=== PATIENT | male | born 1975 | race Caucasian/White ===

== ENCOUNTER → 2020-04-21 10:08 | Outpatient (BNVA) | payer OTHER, SELFPAY | PROVIDERS: Family Provider Family Medicine; Visit Provider Nurse Practitioner Family | DX: R05 Cough (principal) | CPT/HCPCS: 87635 ==

== ENCOUNTER 2020-08-18 15:41 | Outpatient (CLI) | payer OTHER, SELFPAY ==
--- NOTE | 2020-08-18 15:52 | XR_ITS ---
WS: [id number] Chest 2 views, 08/18/2020 Clinical Data: PNEUMONIA, DYSPNEA Comparison: PA and lateral chest, 06/27/2017. Findings: No nodules, masses or effusions are seen. The heart is normal. The pulmonary vascularity is not increased. No pneumonia or pneumothorax is seen. Stimulator leads are overlying the left side of the chest. There are clips in the right upper quadrant from a cholecystectomy. The left first rib is absent. XR/XR chest 2V* [id number] Impression: Negative chest.
== END 2020-08-18 15:42 | disposition home or self-care (01) ==
LOC: RADWPI 15:47
PROVIDERS: PCP Family Medicine; Visit Provider Family Medicine
DX: J18.9 Pneumonia, unspecified organism (principal); R06.02 Shortness of breath
CPT/HCPCS: 71046

== ENCOUNTER → 2022-03-27 13:56 | Outpatient (BNVA) | payer OTHER, SELFPAY | PROVIDERS: PCP Family Medicine; Visit Provider Chiropractor | DX: F03.90 Unspecified dementia, unspecified severity, without behavioral disturbance, psychotic disturbance, mood disturbance, and anxiety (principal); Z00.01 Encounter for general adult medical examination with abnormal findings; R53.82 Chronic fatigue, unspecified; E29.1 Testicular hypofunction; Z12.5 Encounter for screening for malignant neoplasm of prostate | CPT/HCPCS: 80053; 80061; 82533; 82607; 82627; 82670; 82728; 83001; 83002; 83036; 83525; 84153; 84402; 84403; 84439; 84443; 84481; 85025; 86140 ==

== ENCOUNTER → 2023-05-06 15:03 | Outpatient (BNVA) | payer OTHER, SELFPAY | PROVIDERS: PCP Family Medicine; Visit Provider Family Medicine | DX: E34.9 Endocrine disorder, unspecified (principal); I10 Essential (primary) hypertension; R79.89 Other specified abnormal findings of blood chemistry; E03.9 Hypothyroidism, unspecified | CPT/HCPCS: 82040; 82672; 84270; 84403; 84436; 84443; 84481 ==

== ENCOUNTER → 2024-03-26 09:19 | Outpatient (BNVA) | payer OTHER, SELFPAY | PROVIDERS: PCP Family Medicine; Visit Provider Family Medicine | DX: I10 Essential (primary) hypertension (principal); R79.89 Other specified abnormal findings of blood chemistry; E34.9 Endocrine disorder, unspecified; N28.9 Disorder of kidney and ureter, unspecified; G89.29 Other chronic pain; Z13.6 Encounter for screening for cardiovascular disorders; Z79.899 Other long term (current) drug therapy | CPT/HCPCS: 80053; 80061; 82040; 84270; 84403; 85025; 86705; 86706; 86803; 87340; 87806 ==

== ENCOUNTER → 2025-03-23 11:19 | Outpatient (BNVA) | payer OTHER, SELFPAY | PROVIDERS: PCP Family Medicine; Visit Provider Family Medicine | DX: Z00.00 Encounter for general adult medical examination without abnormal findings (principal); I10 Essential (primary) hypertension; N28.9 Disorder of kidney and ureter, unspecified | CPT/HCPCS: 80053; 80061; 86705; 86706; 86803; 87340; 87806 ==

== ENCOUNTER → 2025-07-08 12:32 | Outpatient (BNVA) | payer OTHER, SELFPAY | PROVIDERS: PCP Family Medicine; Visit Provider Family Medicine | DX: K62.5 Hemorrhage of anus and rectum (principal); K64.8 Other hemorrhoids; R10.11 Right upper quadrant pain; K46.9 Unspecified abdominal hernia without obstruction or gangrene | CPT/HCPCS: 80053; 83690; 85025 ==

== ENCOUNTER 2025-07-19 07:40 | Outpatient (CLI) | payer OTHER, SELFPAY ==
[2025-07-19] MEDS: iohexol 350 mg/mL 500 mL Btl (per mL) PO (08:39)
--- NOTE | 2025-07-19 08:45 | CT_ITS ---
WS: [id number] CT ABDOMEN AND PELVIS WITH AND WITHOUT CONTRAST HISTORY: K62.5 - Hemorrhage of anus and rectum TECHNIQUE: Unenhanced 5 mm axial imaging first performed through the abdomen. Post contrast imaging through the abdomen and pelvis. Oral contrast has been provided. Sagittal and coronal reformats are submitted. All CT scans at [facility] use at least one of these dose optimization techniques: automated exposure control; mA and/or kV adjustment per patient size (includes targeted exams where dose is matched to clinical indication); or iterative reconstruction. CONTRAST: Omnipaque 350; 95 mL IV. DLP: 1624.07 mGy.cm COMPARISON: 05/08/2007 Lung bases are clear. Heart size is normal. Small hiatal hernia. Prior cholecystectomy. Liver is very slightly enlarged. No intrahepatic duct dilatation. No mass. Too small to characterize low-attenuation nodule in the inferior RIGHT lobe of the liver. Normal portal vein. Normal size spleen with granuloma. Normal pancreas and adrenal glands. No renal obstruction. Kidneys are normal size. Bilateral cortical hypodensities in each kidney are indeterminate. The largest is 10 mm in the posterior mid LEFT kidney. Smaller cortical hypodensities in each kidney. No obstruction. Mild atherosclerosis aorta. Mesenteric arteries are negative. Nondistended stomach. No small bowel obstruction. Prior appendectomy. Short segment luminal narrowing of the proximal ascending colon. There is mild wall thickening with no adjacent adenopathy or inflammation. Mild constipation. Mild sigmoid diverticulosis without acute diverticulitis. No ascites or adenopathy. No significant abdominal wall hernia. Mild diastases rectus. Bilateral inguinal canal hernias contain fat only. Normally distended urinary bladder. Mild degenerative disc disease and spondylosis in the lower thoracic and lumbar spines. Bony exostosis from the LEFT ilium. Pain pump in the soft tissues over the posterior LEFT lumbar region. CT/CT abdomen pelvis wo/w [id number] IMPRESSION: 1. No GI tract obstruction. 2. There is mild circumferential wall thickening and narrowing of the lumen in volving the ascending colon. No adjacent inflammation or adenopathy. Consider e valuation by colonoscopy versus short-term CT follow-up, 6 to 8 weeks. 3. Prior cholecystectomy. 4. Prior appendectomy. 5. Mild sigmoid diverticulosis without acute diverticulitis. 6. Fat-containing bilateral inguinal hernias. 7. No abdominal wall hernia identified. Mild diastases rectus. 8. Indeterminate bilateral low-attenuation renal masses. These are too small t o characterize due to their small size. These can be reevaluated by renal mass CT protocol. Ultrasound may be beneficial but due to patient's body habitus the se small renal lesions may not be visualized.
[2025-07-19] MEDS: iohexol 350 mg/mL 500 mL Btl (per mL) IV (08:54)
== END 2025-07-19 07:41 | disposition home or self-care (01) ==
LOC: RAD 07:41
PROVIDERS: PCP Family Medicine; Visit Provider Family Medicine
DX: K62.5 Hemorrhage of anus and rectum (principal); K64.8 Other hemorrhoids; K44.9 Diaphragmatic hernia without obstruction or gangrene; Z90.49 Acquired absence of other specified parts of digestive tract; K59.00 Constipation, unspecified; Z90.89 Acquired absence of other organs; K57.30 Diverticulosis of large intestine without perforation or abscess without bleeding; M51.369 Other intervertebral disc degeneration, lumbar region without mention of lumbar back pain or lower extremity pain; M51.34 Other intervertebral disc degeneration, thoracic region; M47.816 Spondylosis without myelopathy or radiculopathy, lumbar region; M47.814 Spondylosis without myelopathy or radiculopathy, thoracic region; K40.20 Bilateral inguinal hernia, without obstruction or gangrene, not specified as recurrent; N28.89 Other specified disorders of kidney and ureter
CPT/HCPCS: 74178

== ENCOUNTER 2025-08-19 10:48 | Day surgery (SDC) | payer OTHER, SELFPAY ==
[2025-08-19 11:02] VITALS: BP 158/114; PULSE 69; RESP 18; TEMP 36.4; O2SAT 96
--- NOTE | 2025-08-19 11:33 | ANES.PREANE2 ---
Pre-Anesthetic Assessment Height/Weight: Height 5 ft 10 in Weight 220 lb Temp Pulse Resp BP Pulse Ox O2 Del Method 97.5 F L 69 18 158/114 96 Room Air 08/19/25 11:02 08/19/25 11:02 08/19/25 11:02 08/19/25 11:02 08/19/25 11:02 08/19/25 11:02 Preop Diagnosis: Abdominal pain Operation Date: 08/19/25 12:40 Proposed Procedures p EGD EGD with Biopsy [id number] G0105 R93.5 R10.9(Not Applicable) - Harrison Rodriguez MD s Colonoscopy(Not Applicable) - Harrison Rodriguez MD Was Beta Jennifer taken within 24 hours: N/A Was Clonidine taken within 24 hours: N/A Last intake: Intake Last Liquid Date 08/18/25 Last Liquid Time 23:55 Last Solid Date 08/17/25 Last Solid Time 09:00 Social Alcohol and Tobacco Exam alert, oriented x 3, clear to auscultation bilaterally and regular rate & rhythm Airway Submandibular: within normal limits Cervical ROM: within normal limits Mallampati: Class II Dentition: full Comments: Comments: Very large sosa Anesthetic Plan ASA status: 3 Anesthesia: General Other: No prior issues with anesthesia Completed bowel prep History of hypertension on amlodipine and losartan GERD on omeprazole Patient drinks nightly Smokes nicotine Labs reviewed from 07/08/2025 and acceptable for procedure METs greater than 4 Plan for MAC anesthesia Medications/Allergies Home Medications ?Medication ?Instructions ?Recorded ?Confirmed ?Last Taken ?Type tadalafil 20 mg tablet 20 mg PO DAILY PRN sexual activity 09/18/24 08/16/25 2 Weeks Ago Rx #45 tabs ~08/02/25 amlodipine 10 mg tablet 10 mg PO DAILY #90 tabs 11/05/24 08/16/25 08/19/25 Rx omeprazole 20 mg capsule,delayed 20 mg PO DAILY stomach #90 caps 11/16/24 08/16/25 08/19/25 Rx release losartan 50 mg tablet 50 mg PO DAILY #90 tabs 04/05/25 08/16/25 08/16/25 Rx hydrocodone 10 mg-acetaminophen 1 tab PO Q6H PRN pain 1 month #120 07/28/25 08/16/25 2 Weeks Ago Rx 325 mg tablet tabs ~08/02/25 Allergies Allergy/AdvReac Type Severity Reaction Status Date / Time No Known Allergies Allergy Verified 08/16/25 09:43 Current Medications Generic Name Dose Route Start Last Admin Trade Name Freq PRN Reason Stop Dose Admin Sodium Chloride 1,000 mls @ 15 mls/hr 08/19/25 10:55 08/19/25 11:19 Sodium Chloride 0.9% IV 08/20/25 10:54 15 mls/hr .Q24H PRN Administration COLONOSCOPY FLUIDS PFSH Anesthesia Family History (Updated 08/10/25 @ 09:35 by Denise Lombardo LPN) Father Multiple myeloma Brother Multiple myeloma Social History Smoking and tobacco/nicotine status: never used tobacco/nicotine
--- NOTE | 2025-08-19 11:40 | P.HPUD_ITS ---
Surgery/Procedure H&P Update DATE OF PROCEDURE: August 19, 2025 DATE H&P PERFORMED: 08/10/25 H&P UPDATE INFORMATION: I have reviewed H&P completed within last 30 days, I have examined patient prior to procedure, No changes to prior documentation, H&P is in [facility] EMR on date indicated and Risks and benefits of the procedure reviewed PREOP DIAGNOSIS: Abdominal pain PLANNED PROCEDURE: Operation Date: 08/19/25 12:40 Proposed Procedures p EGD EGD with Biopsy [id number] G0105 R93.5 R10.9(Not Applicable) - Harrison Rodriguez MD s Colonoscopy(Not Applicable) - Harrison Rodriguez MD
--- NOTE | 2025-08-19 12:10 | ANE.PACU2 ---
Inpatient post-anesthesia follow up: Airway intact: Yes Vital signs: Temperature 97.0 F Pulse Rate 57 Respiratory Rate 16 Blood Pressure 129/84 Pulse Oximetry 94 Oxygen Delivery Me thod Room Air Oxygen Flow Rate Fraction of Inspir ed Oxygen Hydration adequate: Yes Nausea and vomiting: No Pain level: 1 Mental status: Baseline
[2025-08-19 12:16] VITALS: BP 116/77; PULSE 56; RESP 12; TEMP 36.1; O2SAT 94
[2025-08-19 12:24] VITALS: BP 116/78; PULSE 57; RESP 16; O2SAT 98
[2025-08-19 12:41] VITALS: BP 129/84; PULSE 57; RESP 16; O2SAT 94
== END 2025-08-19 13:02 | disposition home or self-care (01) ==
PROVIDERS: PCP Family Medicine; Visit Provider Surgery
PROC: 0DJ08ZZ Inspection of Upper Intestinal Tract, Via Natural or Artificial Opening Endoscopic (ICD-10-PCS; principal; 2025-08-19 12:40)
PROC: 0DJD8ZZ Inspection of Lower Intestinal Tract, Via Natural or Artificial Opening Endoscopic (ICD-10-PCS; CPT 45378; 2025-08-19 12:40)
DX: R10.9 Unspecified abdominal pain (principal); K46.9 Unspecified abdominal hernia without obstruction or gangrene; K64.4 Residual hemorrhoidal skin tags; K64.8 Other hemorrhoids; K44.9 Diaphragmatic hernia without obstruction or gangrene; K29.60 Other gastritis without bleeding; K21.9 Gastro-esophageal reflux disease without esophagitis; I10 Essential (primary) hypertension; Z79.891 Long term (current) use of opiate analgesic; F17.200 Nicotine dependence, unspecified, uncomplicated
CPT/HCPCS: 43239; 45380; 88305; J2704; J7030